=== PATIENT | female | born 1975 | race Caucasian/White ===

== ENCOUNTER 2024-01-28 19:41 | Emergency (ER) | payer BC ==
[~2024-01-28] VITALS: Ht 157.5 cm; Wt 72.6 kg
[2024-01-28 19:45] VITALS: BP_SYST 108; PULSE 74; RESP 18; TEMP 98; O2SAT 97
[2024-01-28 21:09] LABS: ANION GAP 10 (5-15); BASOPHILS % (AUTO) 0.5 % (0.0-2.0); CALCIUM 9.4 mg/dL (8.4-11.0); CARBON DIOXIDE 24 mmol/L (23-29); CHLORIDE 105 mmol/L (98-107); CREATININE 0.71 mg/dL (0.55-1.30); EOSINOPHILS # (AUTO) 0.1 K/uL (0.0-0.4); EOSINOPHILS % (AUTO) 0.7 % (0.0-4.0); GFR AFRICAN AMERICAN 113 mL/min (>90); GFR NON AFRICAN-AMERICAN 94 mL/min (>90); GLUCOSE 107 mg/dL (74-106); HEMATOCRIT 39.4 % (36-48); HEMOGLOBIN 13.9 g/dL (12.0-16.0); LYMPHOCYTES # (AUTO) 2.9 K/uL (1.0-5.5); LYMPHOCYTES % (AUTO) 31.3 % (20.5-51.5); MEAN CORPUSCULAR HEMOGLOBIN 30 pg (27-31); MEAN CORPUSCULAR HGB CONC 35 % (32-36); MEAN CORPUSCULAR VOLUME 84 fL (79.0-98.0); MONOCYTES # (AUTO) 0.5 K/uL (0.0-1.0); MONOCYTES % (AUTO) 5.2 % (1.7-9.3); NEUTROPHILS # (AUTO) 5.8 K/uL (1.8-7.7); NEUTROPHILS % (AUTO) 62.3 % (40.0-70.0); PLATELET COUNT (AUTO) 331 K/uL (130-430); POTASSIUM 3.8 mmol/L (3.5-5.1); RED BLOOD CELL COUNT(AUTO) 4.69 MIL/uL (4.2-6.2); RED CELL DISTRIBUTION WIDTH 14.4 % (9.0-15.0); SODIUM SERUM 139 mmol/L (136-145); UREA NITROGEN, BLOOD 12 mg/dL (8-21); WHITE BLOOD COUNT (AUTO) 9.3 K/uL (4.8-10.8)
[2024-01-28 21:15] LABS: SERUM HCG (QUALITATIVE) NEGATIVE (NEGATIVE)
[2024-01-28] MEDS: KETOROLAC TROMETHAMINE 30 MG VIAL IM ONE (21:24)
[2024-01-28] MEDS ORDERED: ACET-2634 PO (21:44)
[2024-01-28] MEDS ORDERED: IBUP-1969 PO (21:44)
[2024-01-28 22:28] VITALS: BP_SYST 110; PULSE 72; RESP 18; TEMP 97.9; O2SAT 97
== END 2024-01-28 22:28 | disposition home or self-care (01) ==
LOC: SED 19:41
DX: R07.89 Other chest pain (principal)
CPT/HCPCS: 99285; 71045; 80048; 84703; 83880; 85025; 85379; 84484; 36415; 93005; 96372; J1885